=== PATIENT | male | born 1995 | race Caucasian/White ===

== ENCOUNTER 2018-05-11 21:53 | Emergency (ER) | payer MEDICAID ==
[~2018-05-11] VITALS: Ht 170.2 cm; Wt 117.9 kg
[2018-05-11 22:03] VITALS: BP 139/71
--- NOTE | 2018-05-11 22:07 | NUR ---
-TO LOBBY A/W BED, AMB, VSS, ERMD NOTED
[2018-05-11 22:43] LABS: BASOPHILS % (AUTO) 0.4 % (0.0-2.0); EOSINOPHILS # (AUTO) 0.3 K/uL (0-0.4); EOSINOPHILS % (AUTO) 2.8 % (0.0-4.0); HEMATOCRIT 40.4 % (36-52); HEMOGLOBIN 13.6 g/dL (12.0-18.0); LYMPHOCYTES # (AUTO) 2.4 K/uL (2.0-11.5); LYMPHOCYTES % (AUTO) 26.1 % (20.5-51.1); MEAN CORPUSCULAR HEMOGLOBIN 29 pg (27-31); MEAN CORPUSCULAR HGB CONC 34 g/dL (33-37); MONOCYTES % (AUTO) 11.5 % (1.7-9.3); NEUTROPHILS # (AUTO) 5.3 K/uL (1.8-7.7); NEUTROPHILS % (AUTO) 59.2 % (42.2-75.2); PLATELET COUNT (AUTO) 258 K/uL (140-450); RED BLOOD CELL COUNT(AUTO) 4.75 MIL/uL (4.20-6.10)
--- NOTE | 2018-05-11 22:56 | NUR ---
PT AMBULATED TO BED 6 WITH VSS.
[2018-05-11 22:57] LABS: ALBUMIN 3.7 g/dL (3.4-5.0); ANION GAP 10.7 (8-16); CARBON DIOXIDE 30.1 mmol/L (21-32); POTASSIUM 3.8 mmol/L (3.5-5.1); TOTAL BILIRUBIN 0.2 mg/dL (0.0-1.0)
--- NOTE | 2018-05-11 23:15 | NUR ---
PATIENT PRESENTS TO ED WITH C/O ABD PAIN, +N/V; SKIN IS PINK/WARM/DRY; AAOX4 WITH EVEN AND STEADY GAIT; LUNGS CLEAR BL; HR EVEN AND REGULAR; PT DENIES ANY FEVER, CP, SOB, OR COUGH AT THIS TIME; PATIENT STATES PAIN OF 8/10 AT THIS TIME; VSS; PATIENT POSITIONED FOR COMFORT; HOB ELEVATED; BEDRAILS UP X2; BED DOWN. ER MD MADE AWARE OF PT STATUS.
[2018-05-12] MEDS ORDERED: KETOROLAC 60 MG/2 ML VIAL IM ONE (00:35)
--- NOTE | 2018-05-12 01:22 | NUR ---
Patient discharged with v/s stable. Written and verbal after care instructions given and explained. Patient alert, oriented and verbalized understanding of instructions. Ambulatory with steady gait. All questions addressed prior to discharge. ID band removed. Patient advised to follow up with PMD. Rx of NORCO, MOTRIN, ZOFRAN given. Patient educated on indication of medication including possible reaction and side effects. Opportunity to ask questions provided and answered.
[2018-05-12 01:23] VITALS: BP 124/62
== END 2018-05-12 01:23 | disposition home or self-care (01) ==
LOC: MED 21:53
DX: R10.11 Right upper quadrant pain (principal); R11.10 Vomiting, unspecified
CPT/HCPCS: 36415; 74176; 80053; 83690; 85025; 96372; 99284; J1885

== ENCOUNTER 2021-09-21 13:55 | Emergency (ER) | payer MEDICAID ==
[~2021-09-21] VITALS: Ht 170.2 cm; Wt 128.8 kg
[2021-09-21 14:07] VITALS: BP 146/76
--- NOTE | 2021-09-21 14:07 | NUR ---
PT AMBULATED TO BED 12 WITH STEADY GAIT
--- NOTE | 2021-09-21 14:10 | NUR ---
25 Y/O MALE BIB SELF C/O OF SORE THROAT X4 DAYS. NOTED SWOLLEN TONSILS. PER PT HE HAS HAD APPETITE CHANGES BECAUSE OF THE PAIN IN SWALLOWING. DENIES SOB, RESPIRATIONS EVEN AND UNLABORED. STATES SUBJECTIVE FEVER LAST NIGHT. NKA PMH: DENIES
--- NOTE | 2021-09-21 14:41 | NUR ---
ALCIDES WHITAKER AT BEDSIDE FOR EVAL
[2021-09-21] MEDS ORDERED: IBUPROFEN 600 MG TAB PO ONE (14:45)
--- NOTE | 2021-09-21 14:54 | NUR ---
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
[2021-09-21] MEDS ORDERED: PENI500T20 PO (16:13)
[2021-09-21] MEDS ORDERED: IBUP-1842 PO (16:13)
--- NOTE | 2021-09-21 16:16 | NUR ---
Patient discharged with v/s stable. Written and verbal after care instructions ABOUT SORE THROAT given and explained. Patient alert, oriented and verbalized understanding of instructions. Ambulatory with steady gait. All questions addressed prior to discharge. ID band removed. Patient advised to follow up with PMD. Rx of MOTRIN AND PENICILLIN given. Patient educated on indication of medication including possible reaction and side effects. Opportunity to ask questions provided and answered.
== END 2021-09-21 16:16 | disposition home or self-care (01) ==
LOC: MED 13:55
DX: J02.8 Acute pharyngitis due to other specified organisms (principal); Z20.822 Contact with and (suspected) exposure to COVID-19
CPT/HCPCS: 87081; 99283